=== PATIENT | female | born 1980 | race Two or more races ===

== ENCOUNTER → 2019-07-20 | Outpatient (CLI) | payer OTHER ==
[~2019-07-20] MED LIST: CONTRAST GIVEN. MC PRN; IOHEXOL 240 MG/ML 50ML VIAL. PO ONE; IOHEXOL 300 MG/ML 100ML VIAL. IV ONE
--- NOTE | 2019-07-20 15:21 | RAD ---
EXAM: CT Abdomen and Pelvis with IV contrast INDICATION: Right lower quadrant abdominal pain. Periumbilical hernia. TECHNIQUE: Multi-detector row CT images were acquired from the lung bases through the abdomen and pelvis with the use of IV contrast. Sagittal and coronal images were acquired from the transaxial data. All CT scans performed at this facility utilize dose optimization techniques as appropriate to the exam, including the following: Automated exposure control and adjustment of the mA and/or KV according to patient size (this includes techniques or standardized protocols for targeted exams where dose is indication/reason for exam). IV CONTRAST: Administered ORAL CONTRAST: Administered COMPARISON: None FINDINGS: LOWER CHEST: Unremarkable LIVER: Unremarkable BILIARY SYSTEM: Gallbladder is surgically absent. Bile ducts are not dilated. PANCREAS: Unremarkable SPLEEN: Unremarkable ADRENALS: Unremarkable KIDNEYS & URETERS: Unremarkable BLADDER: Unremarkable REPRODUCTIVE ORGANS: Absent uterus. Normal-appearing left ovary and right ovary. GASTROINTESTINAL: The stomach, small bowel, and colon are unremarkable. The appendix is normal. MESENTERY/PERITONEUM/RETROPERITONEUM: Unremarkable VASCULAR: Unremarkable LYMPH NODES: No adenopathy OSSEOUS & SOFT TISSUES: Unremarkable. No hernia is identified. IMPRESSION: Normal CT of the abdomen and pelvis. No evidence of appendicitis or other acute findings to explain right lower quadrant abdominal pain. Electronically signed by: William Henry MD (07/20/2019 3:19 PM) [id number]
== END | disposition home or self-care (01) ==
LOC: CT 09:15
PROVIDERS: ATTEND Family Medicine
DX: R10.31 Right lower quadrant pain (principal); Z90.710 Acquired absence of both cervix and uterus
CPT/HCPCS: 74177; Q9966; Q9967

== ENCOUNTER → 2021-03-06 | Outpatient (CLI) | payer OTHER ==
--- NOTE | 2021-03-06 11:49 | RAD ---
Focused sonographic evaluation of the left groin 03/06/2021 INDICATION: Left groin pain. Discussion: Focused sonographic evaluation of the left groin was performed. Comparison is made to CT of the abdomen and pelvis from July 20, 2019. No focal sonographic abnormality is seen. No hernia, ma ss, or abnormal fluid collection is identified. IMPRESSION: No focal sonographic abnormality in the left groin Electronically signed by: Scot Sierra MD (03/06/2021 11:46 AM) [id number]
== END ==
LOC: US 11:03
PROVIDERS: ATTEND Family Medicine
DX: R19.09 Other intra-abdominal and pelvic swelling, mass and lump (principal); R10.2 Pelvic and perineal pain
CPT/HCPCS: 76881